=== PATIENT | female | born 1990 | race Caucasian/White ===

== ENCOUNTER 2023-11-04 11:21 | Emergency (ER) | payer OTHER ==
[2023-11-04 11:39] VITALS: BP 117/79; PULSE 92; RESP 18; TEMP 98.6; BMI 25.8
[2023-11-04 12:27] LABS: BASO % 0.8 % (0-2.0); EOS % 0.9 % (0-4.5); EPI CELLS >36 /uL (0-25.1); HEMATOCRIT 35.4 % (32.4-45.2); HEMOGLOBIN 11.4 GM/dL (10.7-15.3); HYALINE CASTS 1 /uL (0-3.1); LYMPH % 32.3 % (8-40); MCH 24.3 pg (25.7-33.7); MCHC 32.2 g/dl (32.0-36.0); MEAN CELL VOLUME 75.3 fl (80-96); MONO % 6.4 % (3.8-10.2); NEUT % 59.6 % (42.8-82.8); PH,URINE 7.5 (5.0-8.0); PLATELET COUNT 334 10^3/uL (134-434); RDW 15.8 % (11.6-15.6); URINE APPEARANCE TURBID; URINE BACTERIA 348 /uL (0-1359); URINE BILIRUBIN NEGATIVE (NEGATIVE); URINE COLOR YELLOW; URINE GLUCOSE (UA) NEGATIVE (NEGATIVE); URINE KETONE NEGATIVE (NEGATIVE); URINE LEUK ESTERASE NEGATIVE (NEGATIVE); URINE NITRITE NEGATIVE (NEGATIVE); URINE PROTEIN NEGATIVE (NEGATIVE); URINE RBC 20 /uL (0-23.9); URINE UROBILINOGEN 0.2 mg/dL (0.2-1.0); URINE WBC 14 /uL (0-25.8); WHITE BLOOD COUNT 8.5 K/mm3 (4.0-10.0)
[2023-11-04 12:53] LABS: CALCIUM 8.9 mg/dL (8.5-10.1)
[2023-11-04 12:54] LABS: ALBUMIN 3.7 g/dl (3.4-5.0); BLOOD UREA NITROGEN 9.8 mg/dL (7-18)
[2023-11-04 12:57] LABS: CREATININE 0.6 mg/dL (0.55-1.3)
[2023-11-04 12:59] LABS: BILIRUBIN,TOTAL 0.7 mg/dL (0.2-1)
== END 2023-11-04 14:05 | disposition left against medical advice (07) ==
LOC: JER 11:21
DX: O26.891 Other specified pregnancy related conditions, first trimester (principal); R10.30 Lower abdominal pain, unspecified; Z3A.00 Weeks of gestation of pregnancy not specified
CPT/HCPCS: 36415; 80053; 81003; 84702; 84703; 85025; 86850; 86900; 86901; 87086; 87186; 99283-25

== ENCOUNTER 2023-11-04 19:05 | Emergency (ER) | payer OTHER ==
[2023-11-04 19:13] VITALS: BP 126/81; PULSE 85; RESP 18; TEMP 98; BMI 25.8
== END 2023-11-04 21:12 | disposition home or self-care (01) ==
LOC: JERFT 19:05
DX: O26.891 Other specified pregnancy related conditions, first trimester (principal); R10.9 Unspecified abdominal pain; Z3A.01 Less than 8 weeks gestation of pregnancy
CPT/HCPCS: 76817-TC; 99284-25

== ENCOUNTER 2024-07-05 08:24 | Inpatient (IN) | payer OTHER ==
[2024-07-05 10:41] LABS: HEMATOCRIT 35.6 % (32.4-45.2); HEMOGLOBIN 11.9 GM/dL (10.7-15.3); MCH 25.5 pg (25.7-33.7); MCHC 33.3 g/dl (32.0-36.0); MEAN CELL VOLUME 76.4 fl (80-96); MEAN PLT VOLUME 7.3 fl (7.5-11.1); PLATELET COUNT 215 10^3/uL (134-434); RBC 4.66 M/mm3 (3.60-5.2); RDW 18.9 % (11.6-15.6)
[2024-07-05] MEDS ORDERED: OXYTOCIN 30 UNITS in 0.9% NS 30 UNIT/500 ML INFUS.BAG IVPB ONE (11:05)
[2024-07-05 11:09] LABS: ALBUMIN 2.7 g/dl (3.4-5.0); BLOOD UREA NITROGEN 9.7 mg/dL (7-18); CALCIUM 9.1 mg/dL (8.5-10.1)
[2024-07-05 11:12] LABS: CREATININE 0.5 mg/dL (0.55-1.3)
[2024-07-05 11:14] LABS: BILIRUBIN,TOTAL 0.8 mg/dL (0.2-1); TOT PROT 6.2 g/dl (6.4-8.2)
[2024-07-05] MEDS: ELECTROLYTE-148 SOLN 1,000 ML IV SCH (11:20)
[2024-07-05] MEDS: OXYTOCIN 30 UNITS in 0.9% NS 30 UNIT/500 ML INFUS.BAG IVPB SCH (11:23)
[2024-07-05] MEDS ORDERED: LABETALOL HCL 200 MG TABLET (FP) ONE (11:35)
[2024-07-05] MEDS: LABETALOL HCL 200 MG TABLET (FP) PO SCH (11:36)
[2024-07-05 11:37] LABS: ACTIVATED PTT 27.4 SECONDS (25.2-36.5); INR 0.9 (0.83-1.09); PROTHROMBIN TIME (PATIENT) 10.2 SEC (9.7-13.0)
[2024-07-05] MEDS: DINOPROSTONE 10 MG VAGINAL SUPPOSITORY VG ONE (11:43)
[2024-07-05 12:22] VITALS: BMI 28.0
[2024-07-05] MEDS ORDERED: FENTANYL/BUPIVACAINE/NS/PF - PCEA - 50 ML DISP.SYRIN EP ONE (13:14)
[2024-07-05] MEDS ORDERED: OXYTOCIN 20 UNITS in 0.9% NS 20 UNIT/1,000 ML INFUS.BAG IV ONE ×2 (13:15→15:40)
[2024-07-05] MEDS ORDERED: LIDOCAINE HCL 1% PRESERVATIVE FREE - 30ML VIAL ONE (13:15)
[2024-07-05] MEDS: OXYTOCIN 20 UNITS in 0.9% NS 20 UNIT/1,000 ML INFUS.BAG IV SCH ×2 (13:24→14:30)
[2024-07-05] MEDS: MISOPROSTOL 100 MCG TABLET PV ONE (13:30)
[2024-07-05] MEDS ORDERED: MISOPROSTOL 200 MCG TABLET ONE (13:30)
[2024-07-05] MEDS ORDERED: ACETAMINOPHEN 325 MG TABLET (FP) ONE (13:43)
[2024-07-05] MEDS: ACETAMINOPHEN 325 MG TABLET (FP) PO PRN (13:45)
[2024-07-05] MEDS ORDERED: BISACODYL 10 MG SUPP.RECT RC PRN (13:58)
[2024-07-05] MEDS ORDERED: WITCH HAZEL 50% (TUCKS) 40 PAD/JAR PAD TP PRN (13:58)
[2024-07-05] MEDS ORDERED: BENZOCAINE 28 GM HEMORRHOIDAL OINTMENT TP PRN (13:58)
[2024-07-05 14:11] LABS: CORD HCO3 26.1 mmHg (20-29); CORD PCO2 52.8 mmHg (30-78); CORD pH 7.312 (7.14-7.44)
[2024-07-05 14:12] LABS: CORD BASE EXCESS -2.1 mmol/L (0-2); CORD HCO3 21.1 mmHg (20-29); CORD pH 7.436 (7.14-7.44)
[2024-07-05 14:23] LABS: POC NITRAZINE POS
[2024-07-05] MEDS: CARBOPROST TROMETHAMINE 250 MCG/ML AMPUL IM ONE (14:32)
[2024-07-05] MEDS ORDERED: oxyCODONE HCL 5 MG TABLET ONE (15:19)
[2024-07-05] MEDS: oxyCODONE HCL 5 MG TABLET PO ONE (15:20)
[2024-07-05] MEDS: IBUPROFEN 600 MG TABLET (FP) PO PRN (20:19)
[2024-07-06 06:37] LABS: BASO % 0.8 % (0-2.0); EOS % 0.7 % (0-4.5); HEMATOCRIT 31.6 % (32.4-45.2); HEMOGLOBIN 10.3 GM/dL (10.7-15.3); LYMPH % 30.3 % (8-40); MCH 25.3 pg (25.7-33.7); MCHC 32.6 g/dl (32.0-36.0); MEAN CELL VOLUME 77.8 fl (80-96); MEAN PLT VOLUME 7.3 fl (7.5-11.1); MONO % 4.7 % (3.8-10.2); NEUT % 63.5 % (42.8-82.8); PLATELET COUNT 192 10^3/uL (134-434); RBC 4.06 M/mm3 (3.60-5.2); RDW 18.7 % (11.6-15.6); WHITE BLOOD COUNT 11.9 K/mm3 (4.0-10.0)
[2024-07-06] MEDS ORDERED: SENNOSIDES/DOCUSATE COMBO (SENNA PLUS) TABLET (UD) PO PRN (22:00)
[2024-07-07 08:31] VITALS: TEMP 98.3
[2024-07-07 09:10] VITALS: BP 125/81; PULSE 73; RESP 18
[2024-07-07] MEDS: BENZOCAINE 20% 57 GM BOTTLE TP PRN (10:41)
== END 2024-07-07 14:00 | disposition home or self-care (01) | DRG 560 ==
LOC: JLDR 08:24 → J3W 17:20
PROVIDERS: ADMIT Student in an Organized Health Care Education/Training Program; ATTEND Student in an Organized Health Care Education/Training Program
PROC: 10E0XZZ Delivery of Products of Conception, External Approach (ICD-10-PCS; principal; 2024-07-05)
PROC: 0HQ9XZZ Repair Perineum Skin, External Approach (ICD-10-PCS; 2024-07-05)
PROC: 0W8NXZZ Division of Female Perineum, External Approach (ICD-10-PCS; 2024-07-05)
DX: O13.4 Gestational [pregnancy-induced] hypertension without significant proteinuria, complicating childbirth (principal); O48.0 Post-term pregnancy; O70.0 First degree perineal laceration during delivery; Z3A.41 41 weeks gestation of pregnancy; Z37.0 Single live birth
CPT/HCPCS: 36415; 36600; 59409; 80053; 82570; 82803; 83986-QW; 84156; 85025; 85027; 85610; 85730; 86780; 86850; 86900; 86901